=== PATIENT | male | born 1990 | race African-American/Black ===

== ENCOUNTER 2018-01-01 17:12 | Emergency (ER) | payer MEDICAID ==
--- NOTE | 2018-01-01 18:25 | RADIOLOGY REPORT (SQ) ---
EXAM DESCRIPTION: SHOULDER RIGHT 2 OR MORE VIEWS COMPLETED DATE/TIME: 01/01/2018 5:56 pm REASON FOR STUDY: Fell while skating- R shoulder pain/injury COMPARISON: None. NUMBER OF VIEWS: Three views. TECHNIQUE: Internal rotation, external rotation, and Y view images acquired of the right shoulder. LIMITATIONS: None. FINDINGS: MINERALIZATION: Normal. BONES: No acute fracture or dislocation. No worrisome bone lesions. JOINTS: No dislocation. VISUALIZED LUNGS AND RIBS: No pneumothorax. No rib fracture. SOFT TISSUES: No radiopaque foreign body. OTHER: No other significant finding. IMPRESSION: NEGATIVE STUDY OF THE RIGHT SHOULDER. NO RADIOGRAPHIC EVIDENCE OF ACUTE INJURY. TECHNICAL DOCUMENTATION: JOB ID: [id number] [employer]- All Rights Reserved Reading location - IP/workstation name: [email or web address]
[2018-01-01] MEDS ORDERED: IBUPROFEN 800 MG TABLET PO ONE (18:44)
[2018-01-01] MEDS ORDERED: LIDOCAINE 5% (700 MG) TRANSDERMAL ADH..PATCH TP ONE (18:44)
--- NOTE | 2018-01-01 18:47 | ER Document Report ---
HPI - HPI Patient complains to provider of: Right shoulder pain Time Seen by Provider: 01/01/18 18:38 Onset: Just prior to arrival Onset/Duration: Sudden Quality of pain: Achy Pain Level: 4 Context: Patient states he was in-line skating attempting to jump over a curb and fell landing with the majority of his weight on his right shoulder. Patient complains of pain to the right shoulder and upper back area Exacerbated by: Movement Relieved by: Denies Similar symptoms previously: No Recently seen / treated by doctor: No - ROS ROS below otherwise negative: Yes Systems Reviewed and Negative: Yes All other systems reviewed and negative - CONSTITUTIONAL Constitutional: DENIES: Fever - NEURO Neurology: DENIES: Headache, Weakness - CARDIOVASCULAR Cardiovascular: DENIES: Chest pain - RESPIRATORY Respiratory: DENIES: Trouble Breathing, Coughing - GASTROINTESTINAL Gastrointestinal: DENIES: Abdominal Pain, Nausea, Patient vomiting - MUSCULOSKELETAL Musculoskeletal: REPORTS: Extremity pain, Back Pain - DERM Skin Color: Normal Past Medical History - General Information source: Patient - Social History Smoking Status: Current Every Day Smoker Smoking Education Provided: Yes Frequency of alcohol use: None Drug Abuse: None Occupation: [employer] Lives with: Family Family History: Reviewed & Not Pertinent - Medical History Medical History: Negative Past Surgical History: Reports: Other - Eye surgery Vertical Provider Document - CONSTITUTIONAL Agree With Documented VS: Yes Exam Limitations: No Limitations General Appearance: WD/WN, No Apparent Distress - INFECTION CONTROL TRAVEL OUTSIDE OF THE U.S. IN LAST 30 DAYS: No - HEENT HEENT: Atraumatic, Normocephalic - NECK Neck: Normal Inspection, Supple. negative: Lymphadenopathy-Left, Lymphadenopathy-Right Notes: No midline tenderness, step-off or deformity - RESPIRATORY Respiratory: Breath Sounds Normal, No Respiratory Distress - CARDIOVASCULAR Cardiovascular: Regular Rate, Regular Rhythm Pulses: Normal: Radial - BACK Back: Abnormal Inspection - Right trapezius muscle tenderness with spasm. negative: CVA Tenderness-Right, CVA Tenderness-Left - MUSCULOSKELETAL/EXTREMETIES Musculoskeletal/Extremeties: MAEW, FROM, Non-Tender Notes: Full range of motion to bilateral upper extremities, no dislocation or deformity - NEURO Level of Consciousness: Awake, Alert, Appropriate Motor/Sensory: No Motor Deficit, No Sensory Deficit - DERM Integumentary: Warm, Dry, No Rash Course - Vital Signs Vital signs: Temp Pulse Resp BP Pulse Ox 98.3 F 67 14 128/84 H 95 01/01/18 17:28 01/01/18 17:28 01/01/18 17:28 01/01/18 17:28 01/01/18 17:28 - Diagnostic Test Radiology reviewed: Image reviewed, Reports reviewed Discharge - Discharge Clinical Impression: Strain of right trapezius muscle Qualifiers: Encounter type: initial encounter Qualified Code(s): S46.811A - Strain of other muscles, fascia and tendons at shoulder and upper arm level, right arm, initial encounter Condition: Stable Disposition: HOME, SELF-CARE Instructions: Muscle Relaxers ([facility]), Muscle Strain ([facility]) Additional Instructions: Return immediately for any new or worsening symptoms Followup with your primary care provider, call tomorrow to make a followup appointment Prescriptions: Metaxalone [Skelaxin 800 mg Tablet] 800 mg PO ASDIR PRN #15 tablet PRN Reason: Naproxen [Naprosyn 250 Nmg Tablet] 1 tab PO BID #14 tablet Forms: Smoking Cessation Education, Return to Work Referrals: [facility] [Provider Group] - Follow up as needed
[2018-01-01 18:55] VITALS: BP 126/78
== END 2018-01-01 18:54 | disposition home or self-care (01) ==
LOC: ER 17:12
DX: S46.811A Strain of other muscles, fascia and tendons at shoulder and upper arm level, right arm, initial encounter (principal); W10.1XXA Fall (on)(from) sidewalk curb, initial encounter; F17.200 Nicotine dependence, unspecified, uncomplicated
CPT/HCPCS: 99283; 73030; J3490 ×2

== ENCOUNTER 2018-06-20 14:40 | Emergency (ER) | payer MEDICAID, OTHER ==
--- NOTE | 2018-06-20 15:12 | ER Document Report ---
ED Psych Disorder / Suicide - General Stated Complaint: SI Time Seen by Provider: 06/20/18 15:01 Notes: 27-year-old male who was brought in from the [facility] via EMS for suicidal thoughts. She has been going through a lot of stress at home he is been very depressed. He has a failing marriage. His kids are in foster care. He is having trouble financially. He lives in [place] and would like to go back home but feels trapped here because of his children being in foster care and his relationship and job issues. He is a . He went to the [place] [facility] today and spoke with them. He expressed that he is having thoughts of suicide and "blowing his brains out "when I asked him about that here he does state that he is having thoughts. He is not completely set on a plan but has entertained firearms. He denies any auditory or visual hallucinations denies homicidal occasion. States he feels hopeless and locked in and has no other a lternative. TRAVEL OUTSIDE OF THE U.S. IN LAST 30 DAYS: No - Related Data Allergies/Adverse Reactions: No Known Allergies Allergy (Unverified 01/01/18 17:18) Past Medical History - Social History Smoking Status: Unknown if Ever Smoked Family History: Reviewed & Not Pertinent Renal/ Medical History: Denies: Hx Peritoneal Dialysis Past Surgical History: Reports: Other - Eye surgery Review of Systems - Review of Systems Constitutional: denies: Chills, Fever Cardiovascular: denies: Chest pain Respiratory: denies: Short of breath Neurological/Psychological: Suicidal ideation. denies: Hallucinations, Homicidal ideation, Headaches -: Yes All other systems reviewed and negative Physical Exam - Vital signs Vitals: Temp Pulse Resp BP Pulse Ox 97.9 F 77 16 117/81 96 06/20/18 15:16 06/20/18 15:16 06/20/18 15:16 06/20/18 15:16 06/20/18 15:16 - Notes Notes: GENERAL_APPEARANCE: well_nourished, alert, cooperative, no_acute_distress, no_obvious_discomfort. VITALS: reviewed, see vital signs table. HEAD: no_swelling\\tenderness on the head. EYES: PERRL, EOMI, conjunctiva_clear. NOSE: no_nasal_discharge. MOUTH: (-)decreased moisture. THROAT: no_tonsilar_inflammation, no_airway_obstruction. no_lymphadenopathy NECK: supple, no_neck_tenderness, (-)thyromegaly. BACK: no_back_tenderness. CHEST_WALL: no_chest_tenderness. LUNGS: no_wheezing, no_rales, no_rhonchi, (-)accessory muscle use, good air exchange bilateral. HEART: normal_rate, normal_rhythm, normal_S1, normal_S2, (-)S3, (-)S4, no_murmur, no_rub. ABDOMEN: normal_BS, soft, no_abd_tenderness, (-)guarding, (-)rebound, no_organomegaly, no_abd_masses. EXTREMITIES: strength 5/5 in all_extremities, good pulses in all_extremities, no_swelling\\tenderness in the extremities, no_edema. SKIN: warm, dry, good_color, no_rash. MENTAL_STATUS: speech_clear, oriented_X_3, normal_affect, responds_appropriately to questions. PSYCH: Patient does openly admit to suicidal thoughts has a tentative plan to use a firearm to "blow his brains out "he states he is not completely sure about this. He denies homicidal ideation denies visual auditory hallucinations. Patient has poor eye contact and seems despondent. Course - Re-evaluation Re-evalutation: 06/20/18 15:11 27-year-old male with history depression on Zoloft presents with suicidal thoughts with plan. Patient is not very forthcoming with the plan but once you are able to talk with him a while he will [facility] The patient is feeling trapped and locked in and has no other options. We will evaluate the patient medically. Have psychiatry see him for the recommendations. He looks young and healthy denies any illicit drug use. We will review the blood work. Patient is medically stable for inpatient psychiatric outpatient psychiatric care as he would require per psychiatry recommendations. 06/20/18 17:12 Patient's lab work looked good. He is bilirubin was mildly elevated however none of his other liver enzymes are elevated this is likely a lab variance . Patient is not jaundice or anything of that sort. It is not significant. Patient is medically stable for inpatient psychiatric care at this time. - Vital Signs Vital signs: Temp Pulse Resp BP Pulse Ox 97.9 F 77 16 117/81 96 06/20/18 15:16 06/20/18 15:16 06/20/18 15:16 06/20/18 15:16 06/20/18 15:16 - Laboratory Result Diagrams: 06/20/18 14:56 06/20/18 14:56 Laboratory results interpreted by me: 06/20/18 06/20/18 14:56 15:39 Total Bilirubin 1.6 H Urine Urobilinogen 4.0 H Salicylates < 1.0 L Acetaminophen < 10 L - EKG Interpretation by Pa EKG shows normal: Sinus rhythm Rate: Normal Rhythm: NSR Discharge - Discharge Clinical Impression: Suicidal ideation Condition: Good Disposition: PSYCH HOSP/UNIT
[2018-06-20 15:23] LABS: ABSOLUTE EOSINOPHILS # (AUTO) 0.1 10^3/uL (0.0-0.6); ABSOLUTE LYMPHOCYTES (AUTO) 1.4 10^3/uL (0.5-4.7); ABSOLUTE MONOCYTES (AUTO) 0.6 10^3/uL (0.1-1.4); ABSOLUTE NEUT (AUTO) 7.4 10^3/uL (1.7-8.2); BASOPHILS % (AUTO) 0.2 % (0-2); EOSINOPHILS % (AUTO) 0.9 % (0-6); HEMATOCRIT 43.9 % (37.9-51.0); LYMPHOCYTES % (AUTO) 15.1 % (13-45); MEAN CORPUSCULAR HEMOGLOBIN 29.9 pg (27.0-33.4); MEAN CORPUSCULAR HGB CONC 34.1 g/dL (32.0-36.0); MEAN CORPUSCULAR VOLUME 88 fl (80-97); PLATELET COUNT 196 10^3/uL (150-450); RED BLOOD COUNT 5.01 10^6/uL (4.35-5.55); RED CELL DISTRIBUTION WIDTH 12.5 % (11.5-14.0); SEGMENTED NEUTROPHILS % (AUTO) 77.8 % (42-78); TOTAL CELLS COUNTED % (AUTO) 100 %; WHITE BLOOD COUNT 9.5 10^3/uL (4.0-10.5)
[2018-06-20 15:45] LABS: ALANINE AMINOTRANSFERASE 25 U/L (21-72); ALBUMIN 4.8 g/dL (3.5-5.0); ALKALINE PHOSPHATASE 80 U/L (38-126); ANION GAP 10 (5-19); ASPARTATE AMINO TRANSFERASE 37 U/L (17-59); BILIRUBIN,DIRECT 0.3 mg/dL (0.0-0.4); BILIRUBIN,TOTAL 1.6 mg/dL (0.2-1.3); BLOOD UREA NITROGEN 14 mg/dL (7-20); CALCIUM 10.2 mg/dL (8.4-10.2); CARBON DIOXIDE 30 mmol/L (22-30); CHLORIDE 101 mmol/L (98-107); GLUCOSE 84 mg/dL (75-110); POTASSIUM 4.1 mmol/L (3.6-5.0); SODIUM 141.1 mmol/L (137-145); TOTAL PROTEIN 8.2 g/dL (6.3-8.2)
[2018-06-20 15:48] LABS: ACETAMINOPHEN < 10 ug/mL (10-30); ALCOHOL < 10 mg/dL (NONE DETECTED); SALICYLATE < 1.0 mg/dL (2.0-20.0)
[2018-06-20 16:27] LABS: AMORPHOUS SEDIMENT,URINE TRACE /HPF; APPEARANCE,URINE CLOUDY; BILIRUBIN,URINE NEGATIVE (NEGATIVE); GLUCOSE, URINE NEGATIVE (NEGATIVE); KETONES,URINE NEGATIVE (NEGATIVE); LEUKOCYTE ESTERASE,URINE NEGATIVE (NEGATIVE); NITRITE,URINE NEGATIVE (NEGATIVE); PROTEIN,URINE NEGATIVE (NEGATIVE); URINE SPECIFIC GRAVITY 1.027
[2018-06-20 16:28] LABS: COLOR,URINE YELLOW
[2018-06-20 16:30] LABS: URINE AMPHETAMINES SCREEN NEGATIVE; URINE BARBITURATES SCREEN NEGATIVE; URINE BENZODIAZEPINES SCREEN NEGATIVE; URINE COCAINE SCREEN NEGATIVE; URINE MARIJUANA (THC) SCREEN NEGATIVE; URINE METHADONE SCREEN NEGATIVE; URINE PHENCYCLIDINE SCREEN NEGATIVE
--- NOTE | 2018-06-20 20:06 | EKG REPORT ---
SEVERITY:- NORMAL ECG - SINUS RHYTHM : Confirmed by: Jack Mcnulty MD 20-Jun-2018 20:05:28
--- NOTE | 2018-06-21 09:25 | ER Document Report ---
Doctor's Note Notes: 06/21/18 09:24 Daily emergency department psychiatric rounding note Patient reevaluated this morning. Seems to be doing better. Still having thoughts of suicide though. Still feeling very depressed due to social situation. [facility].
[2018-06-21] MEDS: BUSPIRONE HCL 10 MG TABLET PO SCH (17:51)
[2018-06-22] MEDS: BUSPIRONE HCL 10 MG TABLET PO SCH (09:11)
--- NOTE | 2018-06-22 09:57 | ER Document Report ---
Doctor's Note Notes: 06/22/18 09:56 Rounds: Chart reviewed and patient interviewed. Patient is being evaluated for suicidal ideation. Also depression. Lab studies have all been normal. Vital signs of all been normal. Patient appears to be medically stable for transfer or discharge. Sarbjit Solomon MD
[2018-06-22 10:15] VITALS: BP 131/60
[2018-06-22] MEDS ORDERED: SERTRALINE HCL 50 MG TABLET PO SCH (16:48)
== END 2018-06-22 10:22 | disposition home or self-care (01) ==
LOC: ER 14:40
DX: R45.851 Suicidal ideations (principal); F32.9 Major depressive disorder, single episode, unspecified; Z79.899 Other long term (current) drug therapy; Z63.0 Problems in relationship with spouse or partner; Z59.9 Problem related to housing and economic circumstances, unspecified; Z56.9 Unspecified problems related to employment
CPT/HCPCS: 36415; 80053; 80307; 81001; 85025; 93005; 93010; 99285

== ENCOUNTER 2019-11-20 23:23 | Emergency (ER) | payer OTHER ==
[2019-11-20] MEDS ORDERED: LORAZEPAM 1 MG TABLET PO ONE (23:57)
--- NOTE | 2019-11-20 23:59 | ER Document Report ---
ED General - General Stated Complaint: INSOMNIA Time Seen by Provider: 11/20/19 23:52 Mode of Arrival: Ambulatory Information source: Patient Notes: Patient is a 28-year-old -Hungarian male with history of depression and anxiety. He was recently put on Lamictal and Prozac for his symptoms. He has been having insomnia ever since starting these medications. Upon further review, Lamictal does cause while Prozac causes hypersomnia. Patient does not have any suicidal or homicidal ideation. TRAVEL OUTSIDE OF THE U.S. IN LAST 30 DAYS: No - Related Data Allergies/Adverse Reactions: No Known Allergies Allergy (Unverified 01/01/18 17:18) Past Medical History - Social History Smoking Status: Current Every Day Smoker Family History: Reviewed & Not Pertinent Renal/ Medical History: Denies: Hx Peritoneal Dialysis Psychiatric Medical History: Reports: Hx Depression Past Surgical History: Reports: Other - Eye surgery Review of Systems - Review of Systems Notes: Constitutional: No fevers. No chills. EENT: No eye redness. No eye pain. No ear pain. No sore throat. Cardiovascular: No chest pain. No palpitations. Respiratory: No cough. No shortness of breath. No respiratory distress. Gastrointestinal: No abdominal pain. No nausea, vomiting, or diarrhea. Genitourinary: Atraumatic. No lesions. No pain. No discharge. Musculoskeletal: Atraumatic. No swelling. No deformities. Skin: No rash or lesions. Lymphatic: No swollen lymph nodes. Neurologic: No headache. No syncope. Positive for insomnia Psychiatric: No suicidal or homicidal ideation. Physical Exam - Notes Notes: General: Well-developed, well-nourished. In no acute distress. Non-toxic appearing. Cardiac: Well-perfused. Regular rate and rhythm. No murmurs, rubs, or gallops. Pulmonary: No respiratory distress. No cyanosis. Bilateral lung fiels are clear to auscultation. Abdominal: Non-distended. Non-rigid. Bowels sounds are present in all four quadrants. No guarding or rebound. HEENT: Head is atraumatic. Conjunctivae not reddened. No tearing. PERRL. EOMI. Orbits atraumatic. No periorbital swelling or erythema. Oropharynx is without erythema, swelling, or exudates. Neck: Supple. No adenopathy. No meningismus. Dermatologic: Warm with good turgor. No rash. Atraumatic. Chest: Atraumatic. No chest wall tenderness to palpation. Musculoskeletal: Moves all extremities well. No range of motion deficits. no muscular or joint tenderness. No paraspinal muscle tenderness. no midline spinal tenderness or step-off. Genitourinary: Examination deferred Neurologic: No gross neurologic deficits. Psychiatric: Normal mood. Patient repeatedly denies suicidal or homicidal ideation. Course - Re-evaluation Re-evalutation: 11/20/19 23:55 Lamictal is the potential agent that is causing his insomnia. I told him he needs to speak to his doctor the MD to discuss discontinuing this medication. We will give him a single dose of Ativan tonight to calm his nerves so that hopefully he can get some rest. Discharge - Discharge Clinical Impression: Medication reaction Qualifiers: Encounter type: initial encounter Qualified Code(s): T50.905A - Adverse effect of unspecified drugs, medicaments and biological substances, initial encounter Insomnia Qualifiers: Insomnia type: drug-induced Qualified Code(s): F19.982 - Other psychoactive substance use, unspecified with psychoactive substance-induced sleep disorder Condition: Good Disposition: HOME, SELF-CARE Instructions: Insomnia ([facility]) Additional Instructions: Please contact your physician at the [facility] about discontinuing lamotrigine as this could be the cause of your insomnia. Do not discontinue any medication without first consulting your doctor. Try to avoid smoking late into the night as nicotine can be a stimulant as well. Obviously avoid beverages with lots of caffeine like sodas and energy drinks.
== END 2019-11-21 00:30 | disposition home or self-care (01) ==
LOC: ER 23:23
DX: G47.00 Insomnia, unspecified (principal); T50.905A Adverse effect of unspecified drugs, medicaments and biological substances, initial encounter; F19.982 Other psychoactive substance use, unspecified with psychoactive substance-induced sleep disorder; F32.9 Major depressive disorder, single episode, unspecified; F41.9 Anxiety disorder, unspecified; F17.200 Nicotine dependence, unspecified, uncomplicated; Z79.899 Other long term (current) drug therapy
CPT/HCPCS: 99283

== ENCOUNTER 2019-12-01 14:45 | Emergency (ER) | payer OTHER ==
--- NOTE | 2019-12-01 16:14 | ER Document Report ---
ED Medical Screen (RME) - General Stated Complaint: PSYCH EVAL Time Seen by Provider: 12/01/19 16:10 Notes: Patient presents with IVC paperwork in hand with a deputy attorney general. Patient reports marital strife and wanting to leave his . Patient states that he has had thoughts of wanting to harm himself. Patient denies any HI. Patient has a history of depression. Patient states that he was started on the medication and was taking it for about a week and then discontinued the medicine about a week ago. I have greeted and performed a rapid initial assessment of this patient. A comprehensive ED assessment and evaluation of the patient, analysis of test results and completion of the medical decision making process will be conducted by additional ED providers. TRAVEL OUTSIDE OF THE U.S. IN LAST 30 DAYS: No - Related Data Allergies/Adverse Reactions: No Known Allergies Allergy (Verified 11/21/19 00:27) Past Medical History Renal/ Medical History: Denies: Hx Peritoneal Dialysis Psychiatric Medical History: Reports: Hx Depression Past Surgical History: Reports: Other - Eye surgery Physical Exam - Psychological Associated symptoms: Depressed
--- NOTE | 2019-12-01 16:58 | ER Document Report ---
ED Psych Disorder / Suicide - General Chief Complaint: Psych Problem Stated Complaint: PSYCH EVAL Time Seen by Provider: 12/01/19 16:10 [facility] - Follow up as needed Mode of Arrival: Carried Information source: Law Enforcement Notes: 12/01/19 16:03 - ED Nursing Note by NESS MCPHERSON Graham Num: [id number] : 1990 Patient Age: 28 Pt presents to ED for psychiatric evaluation. The pt is IVCed with papers. Pt is having issues with his marriage. Everything is "falling apart". Pt has a hx of major depressive disorder. Pt was given medication for one week but stopped taking it a week ago. Pt has thoughts of harming himself "sometimes" no thoughts on harming others. The pt is ambulatory. Aox4. Resps e/u. Initialized on 12/01/19 16:03 - END OF NOTE ED Medical Screen ([facility]) - General Stated Complaint: PSYCH EVAL Time Seen by Provider: 12/01/19 16:10 Notes: Patient presents with IVC paperwork in hand with a deputy assessor. Patient reports marital strife and wanting to leave his . Patient states that he has had thoughts of wanting to harm himself. Patient denies any HI. Patient has a history of depression. Patient states that he was started on the medication and was taking it for about a week and then discontinued the medicine about a week ago. MY NOTES today 28-year-old black male arrives with justice court deputy clerk with IVC papers. Patient reports because of mental and marital strife he wants to leave his . He reports she is a heavy drug user and has 2 boys; ages 3 and ages 4 ..who are now in foster care because of her drug problem. 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 He reports he has a history of depression. His mother also has a history of depression. She was born in 1958. Patient admits to some suicidal ideation but has no current plan. Patient's demeanor and facial expressions and overall speech is flat and depressed. Patient denies any physical problems and says he is physically fit. He denies any diabetes or hypertension abdominal problems diarrhea constipation sore throat coronavirus influenza virus. [place] from mental health advises [facility] and said he "will probably commit suicide by police intervention shooting". Patient also says he stopped his Lamictal because he thought it was his sleeping pill. He has history of bipolar and PTSD. TRAVEL OUTSIDE OF THE U.S. IN LAST 30 DAYS: No - HPI Patient complains to provider of: Suicidal attempt Onset: This afternoon Quality of pain: No pain Severity: None Pain Level: Denies Suicide Risk Factors: Bipolar, Depressed Situational problems related to: Spouse Associated symptoms: Depressed - Related Data Allergies/Adverse Reactions: No Known Allergies Allergy (Verified 11/21/19 00:27) Past Medical History - General Information source: Patient - Social History Smoking Status: Current Every Day Smoker Cigarette use (# per day): Yes Chew tobacco use (# tins/day): No Smoking Education Provided: Yes Frequency of alcohol use: None Drug Abuse: None Lives with: Family Family History: Reviewed & Not Pertinent Patient has suicidal ideation: Yes Patient has homicidal ideation: No Renal/ Medical History: Denies: Hx Peritoneal Dialysis Psychiatric Medical History: Reports: Hx Depression Past Surgical History: Reports: Other - Eye surgery Review of Systems - Review of Systems Constitutional: No symptoms reported EENT: No symptoms reported Cardiovascular: No symptoms reported Respiratory: No symptoms reported Gastrointestinal: No symptoms reported Genitourinary: No symptoms reported Male Genitourinary: No symptoms reported Musculoskeletal: No symptoms reported Skin: No symptoms reported Hematologic/Lymphatic: No symptoms reported Neurological/Psychological: See HPI, Depression, Suicidal ideation Physical Exam - Vital signs Vitals: Temp Pulse Resp BP Pulse Ox 98.3 F 61 20 130/79 H 99 12/01/19 16:01 12/01/19 16:01 12/01/19 16:01 12/01/19 16:01 12/01/19 16:01 Interpretation: Normal - General General appearance: Appears well, Alert - HEENT Head: Normocephalic, Atraumatic Eyes: Normal Pupils: PERRL - Respiratory Respiratory status: No respiratory distress Chest status: Nontender Breath sounds: Normal Chest palpation: Normal - Cardiovascular Rhythm: Regular Heart sounds: Normal auscultation Murmur: No - Abdominal Inspection: Normal Distension: No distension Bowel sounds: Normal Tenderness: Nontender Organomegaly: No organomegaly - Rectal Prostate: Other - Deferred - Genitourinary Scrotum: Other - Deferred - Back Back: Normal, Nontender - Extremities General upper extremity: Normal inspection, Nontender, Normal color, Normal ROM, Normal temperature General lower extremity: Normal inspection, Nontender, Normal color, Normal ROM, Normal temperature, Normal weight bearing. No: Lucretia's sign - Neurological Neuro grossly intact: Yes Cognition: Normal Orientation: AAOx4 Derby Coma Scale Eye Opening: Spontaneous Derby Coma Scale Verbal: Oriented [place] Coma Scale Motor: Obeys Commands Derby Coma Scale Total: 15 Speech: Normal Motor strength normal: LUE, RUE, LLE, RLE Sensory: Normal - Psychological Associated symptoms: Depressed, Flat affect - Skin Skin Temperature: Warm Skin Moisture: Dry Skin Color: Normal Course - Vital Signs Vital signs: Temp Pulse Resp BP Pulse Ox 97.5 F 50 L 20 129/72 H 100 12/02/19 08:52 12/02/19 08:51 12/02/19 08:51 12/02/19 08:51 12/02/19 08:51 - Laboratory Result Diagrams: 12/01/19 17:25 12/01/19 17:00 Laboratory results interpreted by me: 12/01/19 12/01/19 12/01/19 17:00 17:10 17:25 Seg Neutrophils % 81.3 H Urine Protein 30 H Urine Urobilinogen 2.0 H Salicylates < 1.0 L Acetaminophen < 10 L - EKG Interpretation by Me EKG shows normal: Sinus rhythm Rate: Normal Rhythm: NSR - With PAC single with 54 bpm rate and also no ST elevation no ST depression and no T wave depression or T wave elevation and this EKG was read by me myself and also I agree with the EKG machine readings. Discharge - Discharge Clinical Impression: Suicidal ideations Depression Qualifiers: Depression Type: unspecified Qualified Code(s): F32.9 - Major depressive disorder, single episode, unspecified Condition: Stable Disposition: OTHER Additional Instructions: on IVC papers; pt was to go to [facility] but was full..and was sent to [facility] - Follow up as needed
--- NOTE | 2019-12-01 17:28 | EKG REPORT ---
SEVERITY:- OTHERWISE NORMAL ECG - SINUS RHYTHM ATRIAL PREMATURE COMPLEX : Confirmed by: Jack Mcnulty MD 01-Dec-2019 17:28:31
[2019-12-01 17:38] LABS: AMORPHOUS SEDIMENT,URINE TRACE /HPF; APPEARANCE,URINE CLOUDY; BILIRUBIN,URINE NEGATIVE (NEGATIVE); COLOR,URINE YELLOW; GLUCOSE, URINE NEGATIVE (NEGATIVE); KETONES,URINE NEGATIVE (NEGATIVE); LEUKOCYTE ESTERASE,URINE NEGATIVE (NEGATIVE); NITRITE,URINE NEGATIVE (NEGATIVE); PROTEIN,URINE 30 mg/dL (NEGATIVE); URINE SPECIFIC GRAVITY 1.027
[2019-12-01 17:38] LABS: ALBUMIN 4.1 g/dL (3.5-5.0); ALKALINE PHOSPHATASE 56 U/L (38-126); ANION GAP 6 (5-19); ASPARTATE AMINO TRANSFERASE 29 U/L (17-59); BILIRUBIN,TOTAL 1.3 mg/dL (0.2-1.3); BLOOD UREA NITROGEN 12 mg/dL (7-20); CALCIUM 9.3 mg/dL (8.4-10.2); CARBON DIOXIDE 28 mmol/L (22-30); CHLORIDE 104 mmol/L (98-107); GLUCOSE 97 mg/dL (75-110); POTASSIUM 4.4 mmol/L (3.6-5.0); TOTAL PROTEIN 6.6 g/dL (6.3-8.2)
[2019-12-01 17:42] LABS: ACETAMINOPHEN < 10 ug/mL (10-30); ALCOHOL < 10 mg/dL (NONE DETECTED); SALICYLATE < 1.0 mg/dL (2.0-20.0)
[2019-12-01 17:44] LABS: ABSOLUTE EOSINOPHILS # (AUTO) 0.1 10^3/uL (0.0-0.6); ABSOLUTE LYMPHOCYTES (AUTO) 1.3 10^3/uL (0.5-4.7); ABSOLUTE MONOCYTES (AUTO) 0.4 10^3/uL (0.1-1.4); ABSOLUTE NEUT (AUTO) 8.1 10^3/uL (1.7-8.2); BASOPHILS % (AUTO) 0.2 % (0-2); EOSINOPHILS % (AUTO) 0.7 % (0-6); HEMATOCRIT 43.1 % (37.9-51.0); HEMOGLOBIN 14.8 g/dL (13.5-17.0); LYMPHOCYTES % (AUTO) 13.3 % (13-45); MEAN CORPUSCULAR HEMOGLOBIN 30.8 pg (27.0-33.4); MEAN CORPUSCULAR HGB CONC 34.3 g/dL (32.0-36.0); MEAN CORPUSCULAR VOLUME 90 fl (80-97); MONOCYTES % (AUTO) 4.5 % (3-13); PLATELET COUNT 223 10^3/uL (150-450); SEGMENTED NEUTROPHILS % (AUTO) 81.3 % (42-78); TOTAL CELLS COUNTED % (AUTO) 100 %
[2019-12-01 17:56] LABS: URINE AMPHETAMINES SCREEN NEGATIVE; URINE BARBITURATES SCREEN NEGATIVE; URINE BENZODIAZEPINES SCREEN NEGATIVE; URINE COCAINE SCREEN NEGATIVE; URINE METHADONE SCREEN NEGATIVE; URINE PHENCYCLIDINE SCREEN NEGATIVE
[2019-12-01 18:04] LABS: URINE MARIJUANA (THC) SCREEN UNCONFIRMED POSITIVE
[2019-12-02] MEDS ORDERED: OLANZAPINE 5 MG TABLET PO ONE (00:14)
[2019-12-02 08:52] VITALS: BP 129/72
--- NOTE | 2019-12-02 08:55 | ER Document Report ---
Doctor's Note Notes: 12/02/19 08:55 Patient is sitting in his bed in no distress he is awaiting transport to [facility] and they are here for him.
== END 2019-12-02 09:01 | disposition other institution (70) ==
LOC: ER 14:45
DX: R45.851 Suicidal ideations (principal); F32.9 Major depressive disorder, single episode, unspecified; Z91.14 Patient's other noncompliance with medication regimen; F17.210 Nicotine dependence, cigarettes, uncomplicated
CPT/HCPCS: 36415; 80053; 80307; 81001; 85025; 93005; 93010; 99285

== ENCOUNTER 2019-12-10 21:17 | Emergency (ER) | payer OTHER ==
--- NOTE | 2019-12-10 22:25 | ER Document Report ---
ED Medical Screen (RME) - General Chief Complaint: Anxiety Stated Complaint: PANIC ATTACK Time Seen by Provider: 12/10/19 22:11 Primary Care Provider: [facility] [Primary Care Provider] - Follow up as needed Notes: Presents with a history of depression, bipolar disorder and PTSD. Patient was recently discharged from inpatient treatment from [place] yesterday. Patient states that he was given paper prescriptions due to medication adjustments and whenever he went to fill the prescriptions today they were over $100 and he could not afford the medication. Patient states he went to the [facility] because he could not afford his medications and they adjusted his medications. Patient states he has not slept since 4:00 in the morning yesterday. Patient states he has been off of medications for the past 2 days and is having racing thoughts. Patient denies any suicidal or homicidal ideation I have greeted and performed a rapid initial assessment of this patient. A comprehensive ED assessment and evaluation of the patient, analysis of test results and completion of the medical decision making process will be conducted by additional ED providers. TRAVEL OUTSIDE OF THE [place] IN LAST 30 DAYS: No - Related Data Allergies/Adverse Reactions: No Known Allergies Allergy (Verified 11/21/19 00:27) Past Medical History Renal/ Medical History: Denies: Hx Peritoneal Dialysis Psychiatric Medical History: Reports: Hx Depression Past Surgical History: Reports: Other - Eye surgery Physical Exam - Vital signs Vitals: Temp Pulse Resp BP Pulse Ox 98.2 F 83 20 143/87 H 98 12/10/19 21:49 12/10/19 21:49 12/10/19 21:49 12/10/19 21:49 12/10/19 21:49 - Psychological Associated symptoms: Normal mood, Other - Poor eye contact Course - Vital Signs Vital signs: Temp Pulse Resp BP Pulse Ox 98.2 F 83 20 143/87 H 98 12/10/19 21:49 12/10/19 21:49 12/10/19 21:49 12/10/19 21:49 12/10/19 21:49 Doctor's Discharge - Discharge [facility]: [facility] - Follow up as needed
[2019-12-10 23:51] LABS: ABSOLUTE EOSINOPHILS # (AUTO) 0.2 10^3/uL (0.0-0.6); ABSOLUTE LYMPHOCYTES (AUTO) 2.7 10^3/uL (0.5-4.7); ABSOLUTE MONOCYTES (AUTO) 0.8 10^3/uL (0.1-1.4); ABSOLUTE NEUT (AUTO) 6.8 10^3/uL (1.7-8.2); BASOPHILS % (AUTO) 0.4 % (0-2); EOSINOPHILS % (AUTO) 1.4 % (0-6); HEMATOCRIT 43.7 % (37.9-51.0); HEMOGLOBIN 15.6 g/dL (13.5-17.0); MEAN CORPUSCULAR HEMOGLOBIN 31.9 pg (27.0-33.4); MEAN CORPUSCULAR HGB CONC 35.8 g/dL (32.0-36.0); MEAN CORPUSCULAR VOLUME 89 fl (80-97); MONOCYTES % (AUTO) 7.7 % (3-13); PLATELET COUNT 236 10^3/uL (150-450); RED BLOOD COUNT 4.89 10^6/uL (4.35-5.55); RED CELL DISTRIBUTION WIDTH 13.2 % (11.5-14.0); SEGMENTED NEUTROPHILS % (AUTO) 64.5 % (42-78); TOTAL CELLS COUNTED % (AUTO) 100 %; WHITE BLOOD COUNT 10.5 10^3/uL (4.0-10.5)
[2019-12-11 00:05] LABS: ALBUMIN 4.5 g/dL (3.5-5.0); ALKALINE PHOSPHATASE 79 U/L (38-126); ANION GAP 5 (5-19); ASPARTATE AMINO TRANSFERASE 48 U/L (17-59); BILIRUBIN,TOTAL 1.1 mg/dL (0.2-1.3); BLOOD UREA NITROGEN 13 mg/dL (7-20); CALCIUM 9.8 mg/dL (8.4-10.2); CARBON DIOXIDE 32 mmol/L (22-30); CHLORIDE 100 mmol/L (98-107); GLUCOSE 87 mg/dL (75-110); LITHIUM 0.5 mEq/L (0.6-1.2); POTASSIUM 4.3 mmol/L (3.6-5.0); TOTAL PROTEIN 7.2 g/dL (6.3-8.2)
--- NOTE | 2019-12-11 09:04 | ER Document Report ---
ED Psych Disorder / Suicide - General Chief Complaint: Psych Problem Stated Complaint: PANIC ATTACK Time Seen by Provider: 12/10/19 22:11 [facility] - Follow up as needed Mode of Arrival: Ambulatory Information source: Patient Notes: 12/01/19 16:03 - ED Nursing Note by KYNESSYANNI Stevenson Num: [id number] : 1990 Patient Age: 28 Pt presents to ED for psychiatric evaluation. The pt is IVCed with papers. Pt is having issues with his marriage. Everything is "falling apart". Pt has a hx of major depressive disorder. Pt was given medication for one week but stopped taking it a week ago. Pt has thoughts of harming himself "sometimes" no thoughts on harming others. The pt is ambulatory. Aox4. Resps e/u. Initialized on 12/01/19 16:03 - END OF NOTE ED Medical Screen ([facility] notes on Nov) - General Stated Complaint: PSYCH EVAL Time Seen by Provider: 12/01/19 16:10 Notes: Patient presents with IVC paperwork in hand with a sheriff lazar. Patient reports marital strife and wanting to leave his . Patient states that he has had thoughts of wanting to harm himself. Patient denies any HI. Patient has a history of depression. Patient states that he was started on the medication and was taking it for about a week and then discontinued the medicine about a week ago. MY NOTES today 28-year-old black male arrives with Sheriff lazar with IVC papers. Patient reports because of mental and marital strife he wants to leave his . He reports she is a heavy drug user and has 2 boys; ages 3 and ages 4 ..who are now in foster care because of her drug problem. 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 He reports he has a history of depression. His mother also has a history of depression. She was born in 1958. Patient admits to some suicidal ideation but has no current plan. Patient's demeanor and facial expressions and overall speech is flat and depressed. Patient denies any physical problems and says he is physically fit. He denies any diabetes or hypertension abdominal problems diarrhea constipation sore throat coronavirus influenza virus. [place] from mental health advises the patient spoke with the [facility] and said he "will probably commit suicide by police intervention shooting". Patient also says he stopped his Lamictal because he thought it was his sleeping pill. He has history of bipolar and PTSD. ED Medical Screen ([facility] notes 4 Dec today) - General Chief Complaint: Anxiety Stated Complaint: PANIC ATTACK Time Seen by Provider: 12/10/19 22:11 [facility] [[facility] - Follow up as needed Notes: Presents with a history of depression, bipolar disorder and PTSD. Patient was recently discharged from inpatient treatment from [facility] yesterday. Patient states that he was given paper prescriptions due to medication adjustments and whenever he went to fill the prescriptions today they were over $100 and he could not afford the medication. Patient states he went to the [facility] because he could not afford his medications and they adjusted his medications. Patient states he has not slept since 4:00 in the morning yesterday. Patient states he has been off of medications for the past 2 days and is having racing thoughts. Patient denies any suicidal or homicidal ideation MY NOTES 28-year-old black male with history of bipolar depression PTSD. Patient reports he has been seen by Dr. Ford at the [facility] who prescribed lithium extended release twice daily [address] Rafael Valera at the [facility]. Who advised cutting the lithium by one half and increase the Seroquel. Patient reports the lowe tag was more than $100 at his drugstore. Patient otherwise is otherwise doing well and was eating breakfast this morning. The ER was quite busy and he has had more than a 10-hour wait. He requests just getting his medicine so he can go to the [facility]. patient denies any homicidal or suicidal ideation. TRAVEL OUTSIDE OF THE [place] IN LAST 30 DAYS: No - HPI Patient complains to provider of: No: Aggression, Agitated, Bizarre behavior, Hallucinating, Homicidal ideation, Homicidal plan, Homicidal attempt, Overdose, Suicidal ideation, Suicidal plan, Suicidal attempt, Self injury Onset: Yesterday Quality of pain: No pain Severity: None Pain Level: Denies - Related Data Allergies/Adverse Reactions: No Known Allergies Allergy (Verified 12/11/19 07:45) Past Medical History - General Information source: Patient - Social History Smoking Status: Never Smoker Cigarette use (# per day): No Chew tobacco use (# tins/day): No Smoking Education Provided: No Frequency of alcohol use: None Lives with: Family Family History: Reviewed & Not Pertinent Patient has suicidal ideation: No Patient has homicidal ideation: No Renal/ Medical History: Denies: Hx Peritoneal Dialysis Psychiatric Medical History: Reports: Hx Bipolar Disorder, Hx Depression Past Surgical History: Reports: Other - Eye surgery Review of Systems - Review of Systems Constitutional: No symptoms reported EENT: No symptoms reported Cardiovascular: No symptoms reported Respiratory: No symptoms reported Gastrointestinal: No symptoms reported Genitourinary: No symptoms reported Male Genitourinary: No symptoms reported Musculoskeletal: No symptoms reported Skin: No symptoms reported Hematologic/Lymphatic: No symptoms reported Neurological/Psychological: See HPI, Anxiety -: Yes All other systems reviewed and negative Physical Exam - Vital signs Vitals: Temp Pulse Resp BP Pulse Ox 98.2 F 83 20 143/87 H 98 12/10/19 21:49 12/10/19 21:49 12/10/19 21:49 12/10/19 21:49 12/10/19 21:49 Interpretation: Normal - General General appearance: Appears well, Alert - HEENT Head: Normocephalic, Atraumatic Eyes: Normal Pupils: PERRL - Respiratory Respiratory status: No respiratory distress Chest status: Nontender Breath sounds: Normal Chest palpation: Normal - Cardiovascular Rhythm: Regular Heart sounds: Normal auscultation Murmur: No - Abdominal Inspection: Normal Distension: No distension Bowel sounds: Normal Tenderness: Nontender Organomegaly: No organomegaly - Rectal Prostate: Other - deferred - Genitourinary Scrotum: Other - deferred - Back Back: Normal, Nontender - Extremities General upper extremity: Normal inspection, Nontender, Normal color, Normal ROM, Normal temperature General lower extremity: Normal inspection, Nontender, Normal color, Normal ROM, Normal temperature, Normal weight bearing. No: Lucretia's sign - Neurological Neuro grossly intact: Yes Cognition: Normal Orientation: AAOx4 [place] Coma Scale Eye Opening: Spontaneous Ct Coma Scale Verbal: Oriented [place] Coma Scale Motor: Obeys Commands Ct Coma Scale Total: 15 Speech: Normal Motor strength normal: LUE, RUE, LLE, RLE Sensory: Normal - Psychological Associated symptoms: Normal affect, Normal mood - Skin Skin Temperature: Warm Skin Moisture: Dry Skin Color: Normal Course - Vital Signs Vital signs: Temp Pulse Resp BP Pulse Ox 98.3 F 70 18 141/86 H 98 12/11/19 02:24 12/11/19 07:44 12/11/19 07:44 12/11/19 07:44 12/11/19 07:44 - Laboratory Result Diagrams: 12/10/19 23:30 12/10/19 23:30 Laboratory results interpreted by me: 12/10/19 23:30 Carbon Dioxide 32 H [place] 0.5 L Discharge - Discharge Clinical Impression: Anxiety, Marijuana use Condition: Stable Disposition: HOME, SELF-CARE Instructions: Anxiety ([facility]) Additional Instructions: Follow-up with Dr. Valera at [facility] or with Dr. Ford. May return to ER if symptoms persist or worsen. Take your medicines as directed. Encourage fluids. Especially return if you have any symptoms of suicide or homicide or [facility] - Follow up as needed
[2019-12-11] MEDS ORDERED: QUETIAPINE FUMARATE 100 MG TABLET PO ONE (09:35)
[2019-12-11] MEDS ORDERED: LITHIUM CARBONATE 450 MG TABLET.ER PO ONE (09:36)
[2019-12-11 09:56] VITALS: BP 150/90
== END 2019-12-11 09:56 | disposition home or self-care (01) ==
LOC: ER 21:17
DX: F41.9 Anxiety disorder, unspecified (principal); F31.9 Bipolar disorder, unspecified; T43.596A Underdosing of other antipsychotics and neuroleptics, initial encounter; Z91.120 Patient's intentional underdosing of medication regimen due to financial hardship; T42.6X6A Underdosing of other antiepileptic and sedative-hypnotic drugs, initial encounter; Z91.138 Patient's unintentional underdosing of medication regimen for other reason; Z91.14 Patient's other noncompliance with medication regimen; R45.851 Suicidal ideations; Z63.0 Problems in relationship with spouse or partner; Z81.8 Family history of other mental and behavioral disorders
CPT/HCPCS: 99283; 36415; 80178; 85025; 80053; J3490

== ENCOUNTER 2019-12-12 04:26 | Emergency (ER) | payer OTHER ==
--- NOTE | 2019-12-12 06:41 | ER Document Report ---
ED General - General Chief Complaint: Anxiety Stated Complaint: ANXIETY Time Seen by Provider: 12/12/19 05:11 Primary Care Provider: ZACARIAS,MARAH [Primary Care Provider] - Follow up as needed Information source: Patient Notes: 28-year-old male patient with history of major depressive disorder and bipolar 2 disorder presenting to the emergency department with complaints of anxiety. Patient reports he takes lithium. He states he would like us to help him come off of his lithium. He reports ongoing family issues, marital discord. He went to the airport this morning with plans to purchase a ticket in [place] to fly home to [place] to stay with his parents for a while. Unfortunately he did not realize that the airport does not take [place] so he was unable to purchase the take it. He states that this caused him a significant amount of anxiety as he was hoping for a fresh start. Patient adamantly denies any suicidal or homicidal ideations. TRAVEL OUTSIDE OF THE [place] IN LAST 30 DAYS: No - Related Data Allergies/Adverse Reactions: No Known Allergies Allergy (Verified 12/12/19 05:38) Home Medications: [place], [place] Past Medical History - General Information source: Patient - Social History Smoking Status: Never Smoker Frequency of alcohol use: None Drug Abuse: Marijuana Family History: Reviewed & Not Pertinent Renal/ Medical History: Denies: Hx Peritoneal Dialysis Psychiatric Medical History: Reports: Hx Bipolar Disorder, Hx Depression Past Surgical History: Reports: Other - Eye surgery Review of Systems - Review of Systems Neurological/Psychological: Anxiety -: Yes All other systems reviewed and negative Physical Exam - Vital signs Vitals: Temp Pulse Resp BP Pulse Ox 98.9 F 80 14 128/77 H 97 12/12/19 04:35 12/12/19 04:35 12/12/19 04:35 12/12/19 04:35 12/12/19 04:35 - Notes Notes: PHYSICAL EXAMINATION: GENERAL: Well-appearing, well-nourished and in no acute distress. HEAD: Atraumatic, normocephalic. EYES: Pupils equal round and reactive to light, extraocular movements intact, sclera anicteric, conjunctiva are normal. ENT: Nares patent, oropharynx clear without exudates. Moist mucous membranes. NECK: Normal range of motion, supple without lymphadenopathy LUNGS: Breath sounds clear to auscultation bilaterally and equal. No wheezes rales or rhonchi. HEART: Regular rate and rhythm without murmurs ABDOMEN: Soft, nontender, nondistended abdomen. No guarding, no rebound. No masses appreciated. Musculoskeletal: Normal range of motion, no pitting or edema. No cyanosis. NEUROLOGICAL: Cranial nerves grossly intact. Normal speech, normal gait. Normal sensory, motor exams PSYCH: Flat affect, tearful. SKIN: Warm, Dry, normal turgor, no rashes or lesions noted. Course - Re-evaluation Re-evalutation: Patient presents the emergency department complaining of anxiety. Patient has multiple life stressors ongoing. He is requesting for us to help give him advice on stopping his lithium. He denies any suicidal or homicidal ideations. He is very disappointed that he was unable to make his flight to [place] this morning due to him having [place] instead of being able to use a credit card to purchase to take it. Apparently the airline would not take [place] when he tried to purchase the to get at the airport. Patient has been here several times over the last 2 weeks. He has had labs drawn each time and they have been normal. He has no acute medical complaints today. I will hold off on ordering any lab work. We will allow him to stay here and speak to psych this morning. I discussed with patient that it would be inappropriate for me to try to make adjustments to his medication. Breakfast tray ordered. Morning report given to Jayy Broderick NP. - Vital Signs Vital signs: Temp Pulse Resp BP Pulse Ox 98.3 F 80 14 122/92 H 100 12/12/19 05:33 12/12/19 04:35 12/12/19 04:35 12/12/19 06:00 12/12/19 06:01 Discharge - Discharge Clinical Impression: Anxiety Condition: Stable Disposition: OTHER [facility]: [facility] - Follow up as needed
[2019-12-12 12:35] LABS: APPEARANCE,URINE CLEAR; BILIRUBIN,URINE NEGATIVE (NEGATIVE); COLOR,URINE YELLOW; GLUCOSE, URINE NEGATIVE (NEGATIVE); KETONES,URINE NEGATIVE (NEGATIVE); LEUKOCYTE ESTERASE,URINE NEGATIVE (NEGATIVE); NITRITE,URINE NEGATIVE (NEGATIVE); PROTEIN,URINE NEGATIVE (NEGATIVE); URINE SPECIFIC GRAVITY 1.008; UROBILINOGEN,URINE NEGATIVE mg/dL (<2.0)
[2019-12-12 12:57] LABS: URINE AMPHETAMINES SCREEN NEGATIVE; URINE BARBITURATES SCREEN NEGATIVE; URINE BENZODIAZEPINES SCREEN NEGATIVE; URINE COCAINE SCREEN NEGATIVE; URINE MARIJUANA (THC) SCREEN NEGATIVE; URINE METHADONE SCREEN NEGATIVE; URINE PHENCYCLIDINE SCREEN NEGATIVE
[2019-12-12 13:07] VITALS: BP 145/91
== END 2019-12-12 13:07 | disposition home or self-care (01) ==
LOC: ER 04:26
DX: F41.9 Anxiety disorder, unspecified (principal); Z59.0 Homelessness
CPT/HCPCS: 80307; 81001; 99284